=== PATIENT | male | born 1980 | race Caucasian/White ===

== ENCOUNTER → 2017-01-26 | Emergency (ER) ==
[~2017-01-26] MED LIST: DILAUDID IV ONE; ZOFRAN IV ONE
[2017-01-26 09:48] LABS: URINE CULTURE NEEDED? NO; URINE MICRO REVIEW NEEDED? NO; URINE SOURCE CLEAN CATCH
[2017-01-26 09:50] LABS: MANUAL DIFF NEEDED? NO
[2017-01-26 10:02] LABS: BASO% 0.5 % (0.0-0.8); EOS# 0.14 X1000 (0.0-0.7); EOS% 1.8 % (0.0-10.0); HEMATOCRIT 38.7 % (42.0-52.0); HEMOGLOBIN 12.9 g/dL (14.0-18.0); IMM GRAN# 0.03 X1000 (0.0-0.04); IMM GRAN% 0.4 % (0.0-0.5); LYMPH% 21.3 % (20.5-51.1); MCH 29.5 PG (27-31); MCHC 33.3 g/dL (33-37); MCV 88.6 FL (81-99); MONO# 0.69 X1000 (0.11-0.59); MONO% 8.6 % (1.7-9.3); MPV 10.7 FL (7.4-10.4); NEUT% 67.4 % (42.2-75.2); PLT 246 X1000 (130-400); RBC 4.37 XMIL (4.7-6.1)
[2017-01-26 10:05] LABS: BILIRUBIN URINE NEGATIVE (NEGATIVE); BLOOD URINE NEGATIVE (NEGATIVE); COLOR YELLOW; GLUCOSE URINE NEGATIVE (NEGATIVE); LEUKOCYTES URINE NEGATIVE (NEGATIVE); NITRITE URINE NEGATIVE (NEGATIVE); PH URINE 8.5; PROTEIN URINE NEGATIVE (NEGATIVE); SP GRAVITY URINE 1.017; TURBIDITY URINE CLEAR (CLEAR); UR EPITHELIAL CELLS <10 /HPF (<10); URINE BACTERIA NEGATIVE /HPF; URINE RBC <10 /HPF (<10); URINE WBC <10 /HPF (<10); UROBILINOGEN URINE NORMAL (NORMAL)
[2017-01-26 10:11] LABS: AGAP 13; ALBUMIN 4.5 g/dL (3.5-5.0); ALKALINE PHOSPHATASE 64 U/L (32-122); AMYLASE 70 U/L (20-200); BUN 15 mg/dL (8-22); CALCIUM 9.6 mg/dL (8.8-10.2); CHLORIDE 97 mmol/L (98-107); COSMO 276; GOT 16 U/L (10-34); GPT 16 U/L (10-44); LIPASE 49 U/L (13-60); POTASSIUM 4.1 mmol/L (3.5-5.1); SODIUM 138 mmol/L (136-145); TCO2 28 mmol/L (25-35); TOTAL PROTEIN 7.2 g/dL (6.3-8.3)
--- NOTE | 2017-01-26 10:57 | PROVIDER DOCUMENTATION ---
HPI-Abdominal Pain/GI Problem - General Chief Complaint: Abdominal Pain Stated Complaint: RT SIDE RIB PAIN,VOMITING Time Seen by Provider: 01/26/17 10:23 Source: patient Allergies/Adverse Reactions: Patient Allergies Allergy/AdvReac Type Severity Reaction Status Date / Time tramadol Allergy Intermediate RASH AND Verified 01/26/17 10:42 SWELLING ketorolac tromethamine * Allergy Mild RASH Verified 01/26/17 10:42 [From Toradol] morphine AdvReac Severe AGITATION Verified 01/26/17 10:42 trazodone AdvReac Severe "KEEPS ME Verified 01/26/17 10:42 AWAKE FOR DAYS" Home Medications: Home Medication List Medication Instructions Recorded Confirmed Last Taken Type Hydrocodone/APAP 5 mg/325 mg 1 each PO Q4-6H PRN PRN #10 tablet 01/26/17 Unknown Rx [Bruno-5] Ondansetron [Zofran] 4 mg PO Q6H PRN PRN #20 tablet 01/26/17 Unknown Rx - History of Present Illness-ABD Nature of Presenting Problems: 36 y/o M with history of HTN, HLD, GERD, gout, renal stones, 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 Pain is described as cramping that occurs approx 10-15min after eating. Associated symptoms include N/V and loose stools (x 3 weeks). He has had similar episodes in the past starting 3 months ago that have been increasing in frequency and severity. Denies hematemesis, hematochezia, fever, acid reflux. PCP is Dr. Day. He saw PCP regarding this who told him if it got worse to come back. He has been to [facility] for this a few months ago and was told he did not have any stones. Abdominal Pain Onset Location: reports: RUQ Pain Radiation: reports: shoulder, back Quality of Pain: reports: cramping Severity in ED: reports: moderate Onset/Duration: reports: 4 days ago Timing: reports: still present, intermittent Activities at Onset: reports: none Exposure to sick contacts?: No Associated Symptoms: reports: cough, nausea, vomiting. denies: chest pain, constipation, fever/chills, shortness of breath Last BM: this morning Dark Stools Present?: reports: none noticed Rectal Bleeding: reports: none Rectal Pain: reports: none Emesis Description: reports: other (food). denies: red blood, coffee grounds, blood-streaked Similar Symptoms Previously?: Yes Recently seen or treated by another doctor?: Yes Review of Systems - Adult - REVIEW OF SYSTEMS - ADULT Constitutional: reports: no symptoms reported. denies: chills, fever Eyes: reports: no symptoms reported. denies: decreased vision, blurred vision Ears, Nose, Mouth & Throat: reports: no symptoms reported. denies: ear pain, hearing loss Cardiovascular: reports: no symptoms reported. denies: chest pain Respiratory: reports: cough. denies: pleurisy, shortness of breath, wheezing Gastrointestinal: reports: see HPI Genitourinary: reports: no symptoms reported. denies: dysuria, hematuria Musculoskeletal: reports: back pain. denies: neck pain Integumentary: reports: no symptoms reported. denies: itching, rash Neurological: reports: no symptoms reported. denies: dizziness/vertigo, headache/migraines Psychiatric: reports: no symptoms reported Endocrine: reports: no symptoms reported Hematologic/Lymphatic: reports: no symptoms reported Allergic/Immunologic: reports: no symptoms reported All Other Systems: Reviewed and Negative Past History - Adult - PAST MEDICAL HISTORY-ADULT Review of Records: reports: Nursing Assessment Review, Medications Reviewed Major Childhood Illnesses: reports: denies history Cardiovascular: reports: denies history Respiratory: reports: denies history Gastrointestinal: reports: other (hernia) Obstetrical/Gynecological: reports: denies history Genitourinary: reports: denies history Musculoskeletal: reports: denies history Neurological: reports: denies history Psychiatric: reports: anxiety Endocrine/Immune: reports: denies history Other Conditions: reports: denies history - PRIOR SURGERIES/PROCEDURES Surgical/Procedure History: reports: orthopedic (extremity) (hand/wrist surgery , vesectomy) - PRIOR HOSPITALIZATIONS Prior Hospitalizations: reports: none - IMMUNIZATION STATUS Childhood Immunizations: UTD Flu Vaccine: See Nurse Assessment - FAMILY HISTORY Family History: reviewed, not pertinent Physical Exam-General - PHYSICAL EXAM-ADULT Initial Vital Signs Reviewed: Yes - CONSTITUTIONAL General Appearance: appears well, alert, no apparent distress - EYES Eyes: PERRL/EOMI, pink conjunctivae - HEAD, EARS, NOSE, MOUTH & THROAT HENMT: normocephalic/atraumatic, moist mucous membranes, normal ENT inspection - NECK Neck: non-tender, full range of motion, supple - RESPIRATORY Respiratory: chest non-tender, lungs clear, normal breath sounds, no pleuratic chest pain, no respiratory distress, no accessory muscle use - CARDIOVASCULAR Cardiovascular: normal peripheral pulses, regular rate, rhythm, no edema - GASTROINTESTINAL (ABDOMEN) Abdominal Exam: normal bowel sounds, soft, tenderness (RUQ) - MUSCULOSKELETAL Back Exam: no CVA tenderness Extremity: normal inspection - SKIN Integumentary: normal color, normal turgor, warm/dry - NEUROLOGIC Neurologic: grossly normal, no motor/sensory deficits - PSYCHIATRIC Psych/Mental Status: normal mood/affect, normal thought content, normal thought process, oriented x 3 Progress - PLAN OF CARE/RESULTS Progress/Plan/Lab Results: Laboratory Tests 01/26/17 01/26/17 01/26/17 09:34 09:34 09:47 WBC 8.00 RBC 4.37 L Hgb 12.9 L Hct 38.7 L MCV 88.6 MCH 29.5 MCHC 33.3 RDW Std Deviation 14.1 Plt Count 246 MPV 10.7 H Immature Gran % (Auto) 0.4 Neut % (Auto) 67.4 Lymph % (Auto) 21.3 [place] % (Auto) 8.6 Eos % (Auto) 1.8 Baso % (Auto) 0.5 Immature Gran # (Auto) 0.03 Neut # (Auto) 5.40 Lymph # (Auto) 1.70 Davie # (Auto) 0.69 H Eos # (Auto) 0.14 Baso # (Auto) 0.04 Sodium 138 Potassium 4.1 Chloride 97 L Carbon Dioxide 28 Anion Gap 13 BUN 15 Creatinine 1.2 Estimated GFR/1.73 m2 > 60 BUN/Creatinine Ratio 13 Glucose 98 Calculated Osmolality 276 Calcium 9.6 Total Bilirubin 0.20 AST 16 ALT 16 Alkaline Phosphatase 64 Total Protein 7.2 Albumin 4.5 Globulin 2.7 Albumin/Globulin Ratio 1.7 Amylase 70 Lipase 49 Urine Source CLEAN CATCH Urine Color YELLOW Urine Turbidity CLEAR Urine pH 8.5 Ur Specific [place] 1.017 Urine Protein NEGATIVE Ur Glucose (Stick) NEGATIVE Ur Ketones (Stick) NEGATIVE Urine Blood NEGATIVE Urine Nitrite NEGATIVE Urine Bilirubin NEGATIVE Urobilinogen Dipstick NORMAL Urine Leukocytes NEGATIVE Urine WBC (Auto) <10 Urine RBC (Auto) <10 U Epithel Cells (Auto) <10 Urine Bacteria (Auto) NEGATIVE Orders Category Date Time Status Saline Loc DIRECTED Care 01/26/17 09:17 Active NPO Diet 01/26/17 09:17 Active CHEST-2 VIEWS [RAD] Stat Exams 01/26/17 10:59 Draft US ABDOMEN-COMPLETE [US] Stat Exams 01/26/17 11:02 Taken AMYLASE [CHEM] Stat Lab 01/26/17 09:34 Completed CBC WITH ELECTRONIC DIFF [HEME] Stat Lab 01/26/17 09:34 Completed COMPREHENSIVE METABOLIC PANEL [CHEM] Stat Lab 01/26/17 09:34 Completed LIPASE [CHEM] Stat Lab 01/26/17 09:34 Completed URINALYSIS W/POSS RFLX CULT [URINALYSIS] Stat Lab 01/26/17 09:47 Completed Hydromorphone [Dilaudid] Med 01/26/17 11:02 Discontinued 1 mg IV NOW ONE Ondansetron [Zofran] Med 01/26/17 11:02 Discontinued 4 mg IV NOW ONE Vital Signs Temp Pulse Resp BP Pulse Ox 01/26/17 10:45 86 20 144/78 100 01/26/17 09:14 98.0 F 88 16 120/75 100 tramadol Allergy (Intermediate, Verified 01/26/17 10:42) RASH AND SWELLING ketorolac tromethamine * [From Toradol] Allergy (Mild, Verified 01/26/17 10:42) RASH morphine Adverse Reaction (Severe, Verified 01/26/17 10:42) AGITATION trazodone Adverse Reaction (Severe, Verified 01/26/17 10:42) "KEEPS ME AWAKE FOR DAYS" Home Meds Unobtainable 01/26/17 Dietary Diet NPO Start Mary Jan 26 917 I&O 01/25/17 01/26/17 01/27/17 06:59 06:59 06:59 Output Total 30 Balance -30 Laboratory 01/26/17 01/26/17 01/26/17 09:47 09:34 09:34 WBC 8.00 RBC 4.37 L Hgb 12.9 L Hct 38.7 L MCV 88.6 MCH 29.5 MCHC 33.3 RDW Std Deviation 14.1 Plt Count 246 MPV 10.7 H Immature Gran % (Auto) 0.4 Neut % (Auto) 67.4 Lymph % (Auto) 21.3 [place] % (Auto) 8.6 Eos % (Auto) 1.8 Baso % (Auto) 0.5 Immature Gran # (Auto) 0.03 Neut # (Auto) 5.40 Lymph # (Auto) 1.70 [place]ie # (Auto) 0.69 H Eos # (Auto) 0.14 Baso # (Auto) 0.04 Sodium 138 Potassium 4.1 Chloride 97 L Carbon Dioxide 28 Anion Gap 13 BUN 15 Creatinine 1.2 Estimated GFR/1.73 m2 > 60 BUN/Creatinine Ratio 13 Glucose 98 Calculated Osmolality 276 Calcium 9.6 Total Bilirubin 0.20 AST 16 ALT 16 Alkaline Phosphatase 64 Total Protein 7.2 Albumin 4.5 Globulin 2.7 Albumin/Globulin Ratio 1.7 Amylase 70 Lipase 49 Urine Source CLEAN CATCH Urine Color YELLOW Urine Turbidity CLEAR Urine pH 8.5 Ur Specific [place] 1.017 Urine Protein NEGATIVE Ur Glucose (Stick) NEGATIVE Ur Ketones (Stick) NEGATIVE Urine Blood NEGATIVE Urine Nitrite NEGATIVE Urine Bilirubin NEGATIVE Urobilinogen Dipstick NORMAL Urine Leukocytes NEGATIVE Urine WBC (Auto) <10 Urine RBC (Auto) <10 U Epithel Cells (Auto) <10 Urine Bacteria (Auto) NEGATIVE Lab workup unremarkable. Afebrile, well-appearing. US shows normal GB. Symptoms consistent with biliary colic. Will discharge home to follow up with General Surgery for further evaluation and treatment. - ULTRASOUND (By Radiology) 1 US Study: Abdomen US Results: Normal GB Departure - Departure Time of Disposition Order: 12:44 DIAGNOSIS: RUQ abdominal pain Disposition: HOME 01 Certified Medical Emergency: Emergent Condition: Good Additional Instructions: ED Follow Up Instructions: You have been treated by a care provider in the Emergency Department. These instructions are being provided to you so you can have an understanding of how to care for yourself upon discharge. Upon discharge from the Emergency Department, you are responsible for making arrangements for follow-up care by a physician of your choice. Take all prescribed medications as directed. Return to the Emergency Department immediately for any new or worsening symptoms. You may call the Physician Referral phone number at [phone] to obtain a list of Physicians who are taking new patients. Prescriptions: Hydrocodone/APAP 5 mg/325 mg [Bruno-5] 1 each PO Q4-6H PRN PRN #10 tablet PRN Reason: Pain Ondansetron [Zofran] 4 mg PO Q6H PRN PRN #20 tablet PRN Reason: Nausea Referrals: Evie Day [Primary Care Provider] - Rodrigo Heaton MD [STAFF PHYSICIAN] - Attestation - Physician/ CANDICE Attestation Patient care was provided by Advanced Practice Provider:: Yes Advanced Practice Provider:: Gricelda Little Advanced Practice Provider documentation review:: The Mid-level provider documentation, treatment plan and medical decision making was reviewed by the physician who agrees with all treatment and medical decision making by the MLP.
--- NOTE | 2017-01-26 12:05 | Diag Imaging Result Document ---
PROCEDURE NAME: CHEST-2 VIEWS - 01/26/2017 FRONTAL AND LATERAL CHEST, TWO VIEWS: FINDINGS: Poor inspiratory effort. The heart is not enlarged. The vessels are not distended. No pneumonia. No pleural effusions. IMPRESSION: No acute abnormality.
--- NOTE | 2017-01-26 12:56 | Diag Imaging Result Document ---
PROCEDURE NAME: US ABDOMEN-COMPLETE - 01/26/2017 COMPLETE ABDOMINAL ULTRASOUND: COMPARISON: None available. FINDINGS: The gallbladder appears normal with no stones, wall thickening, or pericholecystic fluid. The common bile duct is normal in diameter. Sonographic Tyler's sign was reported to be negative. The liver, spleen, aorta, and IVC are grossly unremarkable. The pancreas is obscured by bowel gas. The kidneys are grossly unremarkable. IMPRESSION: Essentially unremarkable abdominal ultrasound.
[2017-01-26 13:30] VITALS: BP 140/75
== END | disposition home or self-care (01) ==
LOC: ED 09:05
DX: R10.11 Right upper quadrant pain (principal); R07.81 Pleurodynia; R11.2 Nausea with vomiting, unspecified; R19.7 Diarrhea, unspecified; R05 Cough; M54.9 Dorsalgia, unspecified; R10.811 Right upper quadrant abdominal tenderness; I10 Essential (primary) hypertension; E78.5 Hyperlipidemia, unspecified; Z87.442 Personal history of urinary calculi; Z98.52 Vasectomy status
CPT/HCPCS: 71020; 76700; 80053; 81001; 82150; 83690; 85025; 96374; 96375; J1170; J2405